=== PATIENT | female | born 1970 | race Caucasian/White ===

== ENCOUNTER → 2017-07-18 | Outpatient (CLI) | payer OTHER ==
[~2017-07-18] MED LIST: ALBUAER2 INH; ATOR-26 PO; EZET10TA63 PO; FURO-85 PO; OMEP40CA PO; OXYC-57 PO
[2017-07-18 18:32] LABS: ALT/SGPT 20 U/L (12-78); BLOOD UREA NITROGEN 8 mg/dl (7-18); BUN/CREATININE RATIO 9.3 (10-20); CALCIUM 8.9 mg/dl (8.5-10.1); CARBON DIOXIDE 27 mmol/L (21-32); CHLORIDE 103 mmol/L (98-107); CREATININE 0.88 mg/dl (0.60-1.20); GLUCOSE 147 mg/dl (70-99); POTASSIUM 3.9 mmol/L (3.5-5.1); SODIUM 139 mmol/L (136-145)
[2017-07-18 18:34] LABS: ALB/GLOB RATIO 0.8 (0.9-2); ALKALINE PHOSPHATASE 92 U/L (45-117); AST/SGOT 14 U/L (15-37)
== END | disposition home or self-care (01) ==
LOC: C.LABSPEC 17:56
PROVIDERS: ATTEND Family Medicine
DX: E87.6 Hypokalemia (principal)

== ENCOUNTER → 2017-11-30 | Outpatient (CLI) | payer OTHER ==
[2017-11-30 18:50] LABS: BASO % 0.2 %; BASO ABS # 0.02 K/uL (0-0.2); EOS % 3.4 %; EOS ABS # 0.28 K/uL (0-0.5); HEMATOCRIT 37.7 % (37-47); HEMOGLOBIN 12.1 g/dL (12.0-16.0); IG# 0.04 K/uL (0.00-0.02); LYMPH % 20.9 %; LYMPH ABS # 1.72 K/uL (1.2-3.4); MEAN CELL VOLUME 90.6 fL (80-100); MEAN CORPUSCULAR HEMOGLOBIN 29.1 pg (25-34); MEAN CORPUSCULAR HGB CONC 32.1 g/dl (32-36); MEAN PLATELET VOLUME 10.7 fL (7.4-10.4); MONO % 6.6 %; MONO ABS # 0.54 K/uL (0.11-0.59); NEUT % 68.4 %; NEUT ABS # 5.62 K/uL (1.4-6.5); PLATELET COUNT 256 K/uL (130-400); RED CELL DISTRIBUTION WIDTH CV 14.4 % (11.5-14.5); RED CELL DISTRIBUTION WIDTH SD 47.4 fL (36.4-46.3); WHITE BLOOD COUNT 8.22 K/uL (4.8-10.8)
[2017-11-30 18:58] LABS: ALBUMIN 3.2 gm/dl (3.4-5.0); ALT/SGPT 20 U/L (12-78); BLOOD UREA NITROGEN 12 mg/dl (7-18); CALCIUM 9.3 mg/dl (8.5-10.1); CARBON DIOXIDE 28 mmol/L (21-32); CHOLESTEROL 86 mg/dl (0-200); CREATININE 0.94 mg/dl (0.60-1.20); GLUCOSE 125 mg/dl (70-99); SODIUM 138 mmol/L (136-145)
[2017-11-30 19:01] LABS: ALKALINE PHOSPHATASE 92 U/L (45-117); AST/SGOT 13 U/L (15-37); LDL CHOLESTEROL CALCULATED 12 mg/dl; TOTAL PROTEIN 7.4 gm/dl (6.4-8.2)
== END | disposition home or self-care (01) ==
LOC: C.LABSPEC 18:29
PROVIDERS: ATTEND Family Medicine
DX: I25.10 Atherosclerotic heart disease of native coronary artery without angina pectoris (principal); I10 Essential (primary) hypertension; J45.30 Mild persistent asthma, uncomplicated